=== PATIENT | male | born 1960 | race Caucasian/White ===

== ENCOUNTER 2019-05-03 20:57 | Emergency (ER) | payer SELFPAY ==
[2019-05-03 20:59] VITALS: BP 149/92
--- NOTE | 2019-05-03 21:12 | ER Report ---
History and Physical Time Seen By MD: 21:08 Hx. of Stated Complaint: RAUSED BUMPS ON INSIDE OF THIGHS THAT WERE NOTICED AN HOUR OR TWO AGO. HIVE -LIKE HPI/ROS CHIEF COMPLAINT: rash HISTORY OF PRESENT ILLNESS: This is a 58 year old male. He has a rash on his legs. Started about 1 hour ago. on anterior and medial thighs. Itchy. Last night he had some redness and itchyness near the corner of his mouth. Slept in car last night. Checked into a hotel and was sleeping in the bed for a few hours. History of allergy to penicillin, but no other allergic reactions. Denies any other new exposures. Allergies: Coded Allergies: ampicillin (Verified Allergy, Intermediate, 05/03/19) HIVES Home Meds Active Scripts Doxycycline Hyclate (DOXYCYCLINE HYCLATE) 100 Mg Tablet, 100 MG PO QDAY, #10 TAB 0 Refills Prov:YONY MASON MD 05/03/19 Reviewed Nurses Notes: Yes Hx Substance Use Disorder: No Hx Alcohol Use: No Constitutional Vital Sign - Last 24 Hours 05/03/19 20:59 Temp 98.0 Pulse 66 Resp 12 B/P (MAP) 149/92 Pulse Ox 90 O2 Delivery Room Air Physical Exam Skin: redness and raised areas around the hair follicles of the legs, mainly medial thighs, and extending less onto anterior thighs. A couple of lesions on back of thighs and on onto calves. Some scratches of the skin. A few areas of redness around the scratches that look urticaria in nature. No other lesions. Nothing that looks like a bug bite. No lesions on hands/wrists, ankles, or trunk. No lesions around mucous membranes. Medical Decision Making ED Course/Re-evaluation ED Course This looks like a folliculitis with allergic component added. No other exposures that would account for this. I explained this to the patient. Benadryl to help with itching. Betamethasone/clotrimazole cream and Doxycylcine. Discussed causes of folliculitis and treatment. Reassured the patient that this does not look like bug bites. Decision to Disposition Date: May 03, 2019 Decision to Disposition Time: 21:30 Depart Departure Latest Vital Signs Vital Signs Date Time Temp Pulse Resp B/P (MAP) Pulse Ox O2 Delivery O2 Flow Rate FiO2 05/03/19 20:59 98.0 66 12 149/92 90 Room Air Impression: Primary Impression: Folliculitis Condition: Improved Disposition: HOME OR SELF-CARE New Scripts Doxycycline Hyclate (DOXYCYCLINE HYCLATE) 100 Mg Tablet 100 MG PO QDAY, #10 TAB 0 Refills Prov: YONY MASON MD 05/03/19 Patient Instructions: Folliculitis (ED) Additional Instructions: You have folliculitis with an inflammatory reaction similar to an allergic reaction. Take Benadryl 25mg over the counter tablets, 1 every 6 hours for itching or swelling. Apply Clotrimazole/Betamethasone cream twice a day. Folliculitis can be due to a bacteria causing inflammation around the hair follicles. You can take the antibiotic Doxycylcine 100mg twice a day for 5 days. YONY MASON MD May 03, 2019 21:12
[2019-05-03] MEDS ORDERED: BETAMETHASO/CLOTRIMAZOLE 15 GM TP SCH (21:35)
[2019-05-03] MEDS ORDERED: diphenhydrAMINE 25 MG CAP TH PO ONE (21:35)
[2019-05-03] MEDS ORDERED: DOXY-179 PO (21:35)
[2019-05-03] MEDS ORDERED: DOXYCYCLINE HYCL 100 MG TAB TH PO ONE (21:40)
== END 2019-05-03 21:42 | disposition home or self-care (01) ==
LOC: ER 21:12
DX: L73.9 Follicular disorder, unspecified (principal); Z88.0 Allergy status to penicillin
CPT/HCPCS: 99282